=== PATIENT | female | born 1995 | race Caucasian/White ===

== ENCOUNTER 2016-11-03 13:13 | Emergency (ER) | payer MEDICAID ==
[~2016-11-03] VITALS: Ht 160 cm; Wt 81.8 kg
[~2016-11-03 13:13] MED LIST: CORTISPORIN OTI10 M2 OT; MOTRIN 600600 MG/TAB PO; NO HOME MEDICATIONS; PRENATAL1 TA1 PO; TRINESSA 281 TAB PO; TRINESSA1 TAB PO; TYLENOL W/COD1 UDTAB PO; VENTOLIN0.09 MG IH; ZITHROMAX Z PA250 MG PO
[2016-11-03] MEDS ORDERED: BIRTH CONTROL PO (13:20)
[2016-11-03] MEDS ORDERED: PREDNISONE20 MG PO (15:01)
[2016-11-03 15:13] VITALS: BP 127/85; PULSE 80; TEMP 97.4
== END 2016-11-03 15:15 | disposition home or self-care (01) ==
LOC: COL.ER 13:13
DX: J06.9 Acute upper respiratory infection, unspecified (principal); F17.210 Nicotine dependence, cigarettes, uncomplicated; R59.0 Localized enlarged lymph nodes

== ENCOUNTER 2017-11-16 17:17 | Emergency (ER) | payer SELFPAY ==
[~2017-11-16] VITALS: Ht 160 cm; Wt 81.8 kg
[~2017-11-16 17:17] MED LIST changes: +BIRTH CONTROL PO; +PREDNISONE20 MG PO
[2017-11-16 17:20] VITALS: TEMP 98.1
[2017-11-16 18:18] LABS: BASO # 0.1 (0.0-0.2); BASO % 0.4 % (0.0-2.0); EOS # 0.1 (0.0-0.7); EOS % 0.9 % (0-4.0); GRAN # 7.7 (1.4-6.5); HEMATOCRIT 39.7 % (37.0-47.0); HEMOGLOBIN 13.9 g/dl (12.5-16.0); LYMPH # 3.1 (1.2-3.4); LYMPH % 26.2 % (20.0-51.0); MEAN CELL VOLUME 87 fl (80.0-100.0); MEAN CORPUSCULAR HEMOGLOBIN 31 pg (27.0-31.0); MEAN CORPUSCULAR HGB CONC 35 g/dl (33.0-37.0); MEAN PLATELET VOLUME 11.4 fl (7.4-10.4); MONO # 0.9 (0.1-0.6); MONO % 7.2 % (1.7-9.3); PLATELET COUNT 280 K/mm3 (130-400); RED BLOOD COUNT 4.55 M/mm3 (4.10-5.30); REDCELL DISTRIBUTION WIDTH-CV 11.9 % (11.5-14.5)
[2017-11-16 18:28] LABS: ALANINE AMINOTRANSFERASE 66 U/L (9-52); ALKALINE PHOSPHATASE 76 U/L (50-136); ANION GAP 13 mmol/L (7-16); AST,SGOT 36 U/L (15-37); BILIRUBIN,TOTAL 0.4 mg/dL (0.0-1.0); BLOOD UREA NITROGEN 11 mg/dL (7-17); C-REACTIVE PROTEIN 1.1 mg/dL (0.0-0.9); CALCIUM 9.6 mg/dL (8.4-10.2); CARBON DIOXIDE 26 mmol/L (22-30); CHLORIDE 101 mmol/L (98-107); CREATININE, serum 0.65 mg/dL (0.52-1.25); GLUCOSE 114 mg/dL (74-106); POTASSIUM 3.9 mmol/L (3.4-5.0); SODIUM 140 mmol/L (137-145); TOTAL PROTEIN 7.6 gm/dL (6.4-8.2)
[2017-11-16 18:37] LABS: TROPONIN-I < 0.012 ng/mL (0.000-0.034)
[2017-11-16 19:23] VITALS: BP 141/99; PULSE 83
== END 2017-11-16 19:25 | disposition home or self-care (01) ==
LOC: COL.ER 17:17
PROVIDERS: Family Medicine
DX: R07.89 Other chest pain (principal); F17.210 Nicotine dependence, cigarettes, uncomplicated
CPT/HCPCS: J1885

== ENCOUNTER 2018-05-21 04:11 | Emergency (ER) | payer MEDICAID ==
[~2018-05-21] VITALS: Ht 160 cm; Wt 81.8 kg
[2018-05-21 04:18] VITALS: BP 157/92; TEMP 98.7
[2018-05-21] MEDS ORDERED: OMNICEF 300MG300 MG PO (05:26)
[2018-05-21 05:37] VITALS: PULSE 72
== END 2018-05-21 05:37 | disposition home or self-care (01) ==
LOC: COL.ER 04:11
DX: H66.001 Acute suppurative otitis media without spontaneous rupture of ear drum, right ear (principal)

== ENCOUNTER 2018-05-25 09:51 | Emergency (ER) | payer MEDICAID ==
[~2018-05-25] VITALS: Ht 157.5 cm; Wt 81.8 kg
[~2018-05-25 09:51] MED LIST changes: +OMNICEF 300MG300 MG PO
[2018-05-25 10:09] VITALS: BP 154/93; TEMP 97.4
[2018-05-25 12:21] LABS: BASO # 0.1 (0.0-0.2); BASO % 0.3 % (0.0-2.0); EOS # 0.1 (0.0-0.7); EOS % 0.6 % (0-4.0); GRAN # 11.7 (1.4-6.5); GRAN % 77.6 % (42.2-75.2); HEMATOCRIT 43.7 % (37.0-47.0); HEMOGLOBIN 15.2 g/dl (12.5-16.0); LYMPH # 2.3 (1.2-3.4); LYMPH % 15.1 % (20.0-51.0); MEAN CELL VOLUME 90 fl (80.0-100.0); MEAN CORPUSCULAR HEMOGLOBIN 31 pg (27.0-31.0); MEAN CORPUSCULAR HGB CONC 35 g/dl (33.0-37.0); MEAN PLATELET VOLUME 11.9 fl (7.4-10.4); MONO # 0.9 (0.1-0.6); PLATELET COUNT 333 K/mm3 (130-400); RED BLOOD COUNT 4.84 M/mm3 (4.10-5.30); REDCELL DISTRIBUTION WIDTH-CV 11.5 % (11.5-14.5)
[2018-05-25 12:34] LABS: ANION GAP 5 mmol/L (7-16); BLOOD UREA NITROGEN 9 mg/dL (7-17); CARBON DIOXIDE 31 mmol/L (22-30); CHLORIDE 103 mmol/L (98-107); CREATININE, serum 0.62 mg/dL (0.52-1.25); GLUCOSE 128 mg/dL (74-106); POTASSIUM 4.4 mmol/L (3.4-5.0); SODIUM 138 mmol/L (137-145)
[2018-05-25 12:51] LABS: HCG,QUANTITATIVE < 2 mIU/mL (0-5)
[2018-05-25 13:10] VITALS: PULSE 86
== END 2018-05-25 13:10 | disposition home or self-care (01) ==
LOC: COL.ER 09:51
PROVIDERS: Emergency Medicine
DX: N93.9 Abnormal uterine and vaginal bleeding, unspecified (principal); F17.210 Nicotine dependence, cigarettes, uncomplicated